=== PATIENT | female | born 1965 | race Caucasian/White ===

== ENCOUNTER 2016-08-08 01:16 | Inpatient (IN) | payer OTHER ==
--- NOTE | ~2016-08-08 | OR ---
Unit #: [id number] #: [id number] Patient: KIMBERLY SMITH [id number] [address] [address] [id number] I MR#: [id number] NAME: KIMBERLY SMITH. ROOM: [facility] Date of Procedure: 08/10/2016 Admission Date: 08/08/2016 Surgeon: Shailesh Vega M.D. : 1965 Attending Physician: Darion Cortez M.D. Primary Care Physician: Sally Schmitt M.D. OPERATIVE REPORT PRIMARY CARE PHYSICIAN Sally Schmitt M.D. PREOPERATIVE DIAGNOSES Severe iron deficiency anemia. PROCEDURES PERFORMED Upper gastrointestinal endoscopy and biopsy. POSTOPERATIVE DIAGNOSES Moderately severe diffuse pre-pyloric antral gastritis, otherwise normal examination up to third part of duodenum. RECOMMENDATIONS 1. The patient can be discharged home from gastrointestinal standpoint. 2. Start 1800 calorie CCD diet. 3. She does require a colonoscopy, however, she has refused the examination in the hospital. This can be pursued on an outpatient basis provided she is willing. SEDATION USED MAC. DESCRIPTION OF PROCEDURE Following detailed explanation of the potential risks and complications of upper endoscopy, namely perforation, bleeding, and complications related to sedation, the patient was brought to GI lab and laid in the left lateral decubitus position. Lubricated tip of the Olympus video upper endoscope was passed through the bite block into the proximal esophagus under direct vision. The entire esophageal mucosa was examined and appeared normal. Z-line was nicely demarcated, there being no esophagitis or hiatus hernia. The scope was then advanced into the gastric cavity and the latter was insufflated. Mucosa of the fundus, body, and antrum was examined and the patient was noted to have moderately severe diffuse prepyloric antral gastritis. Pylorus was intubated with visualization of the normal duodenal bulb and second and third part of the duodenum. Upon withdrawal and retroflexion, incisura, cardia, and greater curve were examined and a biopsy was obtained from the antrum for CLOtest. The scope was then withdrawn into the distal esophagus. Entire esophageal mucosa was examined all the way up to pharynx. No additional findings were noted. The patient tolerated the procedure without any postprocedure complications. Unit #: [id number] #: [id number] Patient: KIMBERLY SMITH Dictated by... Mercedes Gibbs/ciara TD: 08/12/2016 04:58 JOB #: [id number] OPERATIVE REPORT Page 1 of 1 X Shailesh Vega MD X PROCEDURE OPERATIVE NOTE
--- NOTE | ~2016-08-08 | CT4 ---
[facility] A Service of [facility] RADIOLOGY TEXT RESULTS PATIENT: KIMBERLY SMITH [facility] [id number] : [birth year] UNIT #: [id number] AGE: [address]: Christoph Jonas MD SEX: F ORDER DR: [id number] [facility] [address] [facility]. [place], [place] [address] [id number] E MR#: [id number] Acc #: [id number] NAME: KIMBERLY SMITH : 1965 SEX: F STUDY DATE/TIME: 08/08/2016 3:37 UNIT: [facility] ROOM: STUDY DESCRIPTION: CT Abd and Pelv Wo Cont Attending Physician: Aracelis Perez M.D. Ordering Physician: Aracelis Perez M.D. Primary Care Physician: Sally Schmitt M.D. MEDICAL IMAGING REPORT This report is preliminary unless electronic signature is present EXAM CT abdomen and pelvis, noncontrast, 08/08/2016 HISTORY 51-year-old female in the ED complaining of 4-day history of nausea, vomiting and generalized abdomen pain. Past history of renal cell carcinoma and ovarian cancer. TECHNIQUE CT examination of the abdomen and pelvis was performed without oral or IV contrast as requested. This CT exam was performed with one or more of the following radiation dose reduction techniques: automatic exposure control, adjustment of mA and/or kV according to patient size, and iterative reconstruction. FINDINGS ABDOMEN FINDINGS: The exam shows evidence of significant chronic liver disease with hepatomegaly, lobulated hepatic contour and left lobe hypertrophy. Cirrhosis is suspected. The spleen is mildly enlarged, measuring about 13 cm. Mild diffuse hepatic steatosis. No liver mass is seen. There is no ascites. Cholecystectomy. Pancreas is normal. Postop changes left nephrectomy. No evidence of local tumor recurrence. Solitary right kidney appears normal. Small bowel and colon are normal in caliber and appearance, as imaged. The appendix is normal. Normal-caliber abdominal aorta. PELVIS FINDINGS: Hysterectomy. Bladder and rectum are negative. No mass or adenopathy within the pelvis, or elsewhere within the abdomen or retroperitoneum. [facility] A Service of [facility] RADIOLOGY TEXT RESULTS PATIENT: KIMBERLY SMITH LOCATION: [facility] [id number] : [birth year] UNIT #: [id number] AGE: [address]: Christoph Jonas MD SEX: F ORDER DR: IMPRESSION 1. No acute abnormality within the abdomen or pelvis. 2. Likely hepatic cirrhosis and mild splenomegaly as noted above. Mild diffuse hepatic steatosis. 3. Cholecystectomy. 4. Previous left nephrectomy. History of renal cancer. No evidence of recurrent or metastatic malignancy within the abdomen or pelvis. Solitary right kidney shows no abnormality. 5. Hysterectomy. Dictated by... Hunter Brice M.D. THIS IS AN ELECTRONICALLY VERIFIED REPORT Hunter Brice M.D. at 08/08/2016 5:52 AM MARGARET/martin TD: 08/08/2016 04:39 JOB #: [id number] MEDICAL IMAGING REPORT Page 1 of 1 COPY
--- NOTE | ~2016-08-08 | EKG ---
PATIENT: KIMBERLY SMITH UNIT #: [id number] Ventricular Rate: 96 BPM Atrial Rate: 96 BPM P-R Interval: 164 ms QRS Duration: 76 ms Q-T Interval: 354 ms QTC Calculation(Bezet): 447 ms P [place]: 49 degrees Calculated R [place]: 48 degrees Calculated T [place]: 25 degrees Diagnosis Line: Normal sinus rhythm Diagnosis Line: Poor R wave progression questionable lead position Diagnosis Line: or body habitus Diagnosis Line: Nonspecific ST and T wave abnormality Diagnosis Line: Abnormal ECG Diagnosis Line: When compared with ECG of 30-DEC-2015 14:51, Diagnosis Line: Questionable change in initial forces of Anterior Diagnosis Line: leads Diagnosis Line: Non-specific change in ST segment in Lateral leads Diagnosis Line: Confirmed by JOS HENDRICKS MD ([id number]) on 08/09/2016 Diagnosis Line: 6:26:17 PM INTERPRETING MD: ELADIO SYLVESTER
--- NOTE | ~2016-08-08 | CO ---
Unit #: [id number] #: [id number] Patient: KIMBERLY SMITH [id number] [address] [address] [id number] I MR#: [id number] NAME: KIMBERLY SMITH. ROOM: 316 Age: 51 Sex: F Admission Date: 08/08/2016 : 1965 Attending Physician: Darion Cortez M.D. Primary Care Physician: Sally Schmitt M.D. Consultation Date: 08/08/2016 CONSULTATION REPORT REASON FOR CONSULTATION Pneumonia, lung nodule. 51-year-old female with past medical history significant for COPD, TIA, history of renal cell, ovarian carcinoma, diabetes, gastroesophageal reflux disease, obstructive sleep apnea, presents with a complaint of cough, shortness of breath and generalized weakness, found to have low hemoglobin. CT chest showed lung nodule and possible pulmonary congestion and pneumonia. I am seeing patient at bedside, currently getting blood transfusion. Denies any nausea, vomiting, diarrhea. PAST MEDICAL HISTORY As described above. SURGICAL HISTORY 1. Cholecystectomy. 2. Tubal ligation. 3. Hysterectomy. 4. Fatty cyst removal. 5. Carpal tunnel. 6. Left sided nephrectomy. 7. Hernia repair. 8. Cataract surgery. HOME MEDICATION 1. Cardizem. 2. Lasix. 3. Estrace. 4. Pravachol. 5. Lamotrigine. 6. Humalog. 7. Lantus. 8. Seroquel. 9. Zestril. 10. Protonix. 11. Clonazepam. 12. Cymbalta. 13. Henderson. 14. Metoprolol. 15. Nitrostat. ALLERGIES Unit #: [id number] #: [id number] Patient: KIMBERLY SMITH Zoloft, codeine, Bactrim, fenofibrate. PHYSICAL EXAMINATION VITAL SIGNS: Temperature 98, pulse 87, respirations 12, blood pressure 148/57. NEUROLOGICAL: Awake, alert, oriented. No neuro deficit. HEENT: PERRLA. NECK: Supple. No JVD. CHEST: Bilateral air entry, bilateral mild rhonchi. GI: Nontender, soft. Bowel sounds positive. EXTREMITIES: No edema. SKIN: No rashes, no ulcers. LYMPHATIC: No lymphadenopathy. DIAGNOSTIC STUDIES Labs and imaging have been reviewed. ASSESSMENT AND PLAN 1. Acute respiratory failure. 2. Community-acquired pneumonia. 3. Lung nodule. 4. Anemia. 5. Likely obstructive sleep apnea. Plan is to continue oxygen, continue bronchodilator, IV steroids, IV antibiotic, bronchodilator, GI and DVT prophylaxis, BiPAP support, GI evaluation. Please see orders for detailed plan. Thank you very much for this consultation. Dictated by... Mercedes Arthur/seb TD: 08/09/2016 10:16 JOB #: [id number] CONSULTATION REPORT Page 1 of 1 X Nikki Rodriguez MD X CONSULTATION REPORT
--- NOTE | ~2016-08-08 | CT57 ---
[facility] A Service of [facility] RADIOLOGY TEXT RESULTS PATIENT: KIMBERLY SMITH [facility] [address]18 : [birth year] UNIT #: [id number] AGE: [address]: Christoph Jonas MD SEX: F ORDER DR: [id number] [facility] [address] [place], [place] [address] [id number] E MR#: [id number] Acc #: [id number] NAME: KIMBERLY SMITH : 1965 SEX: F STUDY DATE/TIME: 08/08/2016 3:37 UNIT: [facility] ROOM: STUDY DESCRIPTION: CT Chest Wo Cont Attending Physician: Aracelis Perez M.D. Ordering Physician: Aracelis Perez M.D. Primary Care Physician: Sally Schmitt M.D. MEDICAL IMAGING REPORT This report is preliminary unless electronic signature is present EXAM CT chest, noncontrast, 08/08/2016 HISTORY 51-year-old female in the ED complaining of 4-day history of shortness of air, mid chest pain and cough. She also notes generalized abdomen pain, nausea and vomiting. Past history includes ovarian cancer and renal cancer. TECHNIQUE CT examination of the chest was performed without IV contrast. This CT exam was performed with one or more of the following radiation dose reduction techniques: automatic exposure control, adjustment of mA and/or kV according to patient size, and iterative reconstruction. FINDINGS Mildly increased reticular markings throughout both lungs as well as diffuse, slightly patchy ground-glass pulmonary opacity. The findings are nonspecific but suggest mild pulmonary edema which may be cardiogenic or noncardiogenic. There was no airspace consolidation. Tiny amounts of fluid are present within the pulmonary fissures, but there is no free pleural effusion. Heart size is normal. No significant pericardial effusion. Normal-caliber thoracic aorta. There is a solitary, well-defined, round pulmonary nodule in the right lung apex anteriorly measuring up to 1.5 cm. This is not visible on 2 prior chest x-rays obtained in 2015. Malignant pulmonary nodule is not excluded. Given the prior history of malignancy, followup PET/CT scan is recommended for further evaluation. Abdomen and pelvis CT to follow. IMPRESSION STS. [facility] A Service of [facility] & [facility] RADIOLOGY TEXT RESULTS PATIENT: KIMBERLY SMITH LOCATION: [facility] [address]-64 : [birth year] UNIT #: [id number] AGE: [address]: Christoph Jonas MD SEX: F ORDER DR: 1. Lung finding suggesting potential mild diffuse interstitial and ground-glass pulmonary edema or diffuse infiltrate, correlate clinically. There is no free pleural effusion. Heart size normal. 2. Large solitary pulmonary nodule in the right lung apex measuring up to 1.5 cm. Patient has reported prior history of renal carcinoma as well as ovarian cancer. Primary or metastatic malignancy is not excluded. Consider followup whole-body PET/CT scan for further characterization. Dictated by... Hunter Brice M.D. THIS IS AN ELECTRONICALLY VERIFIED REPORT Hunter Brice M.D. at 08/08/2016 5:52 AM Bruna TD: 08/08/2016 04:35 JOB #: [id number] MEDICAL IMAGING REPORT Page 1 of 1 COPY
--- NOTE | ~2016-08-08 | BMI ---
[facility] Nutrition Therapy DATE: 08/08/16 Patient: KIMBERLY SMITH Physician: OANH Address: [address] [place] [address] ROAD Room/Bed: [address] [place] [address], Zip: [place] [address] Admit Date: 08/08/16 Date of : [birth year] Height: 5 2 Weight: 220 99.8 HIGH BMI NOTE: DX: 51 Y.O. FEMALE ADMITTED FOR PNA. ANTHROPOMETRICS: 5'2", WT: 220# (100 KG), BMI 40 DIET: CONSISTENT CARB DIET INTERVENTION: 1. CONSISTENT CARB DIET RECOMMENDATIONS: 1. ONCE MEDICALLY FEASIBLE, ADD HEALTHY HEART DIET TO CURRENT CONSISTENT CARBOHYDRATE DIET IN ORDER TO PROMOTE GRADUAL WEIGHT LOSS TOWARDS A HEALTHY BMI (19.0-25.0) OR +/-10% IBW. RD WILL F/U PER PROTOCOL. Respectfully, BINU ESCOBAR, BUSINESS SUPPORT COORDINATOR JOSH DEL ROSARIO MS, RD, LD [facility] and Nutrition[facility] Services [facility] cc: client file
--- NOTE | ~2016-08-08 | CR72 ---
[facility] A Service of [facility] RADIOLOGY TEXT RESULTS PATIENT: KIMBERLY SMITH LOCATION: [facility] : [birth year] UNIT #: [id number] AGE: [address]: Christoph Jonas MD SEX: F ORDER DR: [id number] [facility] [address] [facility]. [place], [place] [address] [id number] E MR#: [id number] Acc #: [id number] NAME: KIMBERLY SMITH : 1965 SEX: F STUDY DATE/TIME: 08/08/2016 4:06 UNIT: [facility] ROOM: STUDY DESCRIPTION: CR Chest Single View Portable Attending Physician: Aracelis Perez M.D. Ordering Physician: Aracelis Preez M.D. Primary Care Physician: Sally Schmitt M.D. MEDICAL IMAGING REPORT This report is preliminary unless electronic signature is present EXAM Chest x-ray, 08/08/2016 HISTORY 51-year-old female in the ED with 3-day history of shortness of air and weakness. Severe anemia. She is reportedly being considered for blood transfusion. She has a history of renal and ovarian cancer. TECHNIQUE AP portable chest x-ray. FINDINGS The exam suggests mild diffuse interstitial edema, best seen on the chest x-ray also obtained earlier today. There was no airspace consolidation or visible pleural effusion. Heart size normal. Pulmonary nodule in the right upper lobe, also best seen on the earlier CT study, new since the prior exam of 10/04/2014. Metastatic disease is a consideration given the history of prior malignancy. See chest CT reported separately. IMPRESSION 1. Lung findings suggesting mild interstitial edema. 2. Right upper lobe pulmonary nodule. Dictated by... Hunter Brice M.D. THIS IS AN ELECTRONICALLY VERIFIED REPORT Hunter Brice M.D. at 08/08/2016 5:52 AM [facility] A Service [facility] RADIOLOGY TEXT RESULTS PATIENT: KIMBERLY SMITH LOCATION: [facility] : [birth year] UNIT #: [id number] AGE: [address]: Christoph Jonas MD SEX: F ORDER DR: MARGARET/martin TD: 08/08/2016 04:47 JOB #: [id number] MEDICAL IMAGING REPORT Page 1 of 1 COPY
--- NOTE | ~2016-08-08 | DS ---
Unit #: [id number] #: [id number] Patient: KIMBERLY SMITH [id number] [address] [place], [place] [address] [id number] I MR#: [id number] NAME: KIMBERLY SMITH. ROOM: 316 Age: 51 Sex: F Admission Date: 08/08/2016 : 1965 Discharge Date: 08/11/2016 Attending Physician: Darion Cortez M.D. Primary Care Physician: Sally Schmitt M.D. DISCHARGE SUMMARY REASON FOR ADMISSION Decreased hemoglobin; community-acquired pneumonia. HISTORY OF PRESENT ILLNESS/HOSPITAL COURSE Patient is a very pleasant 51-year-old obese female who, over the past 7 days prior to admission, stated that she had increased level of dyspnea on exertion. She apparently saw her primary care physician, was told her blood counts were low and subsequently presented to the hospital for further evaluation. Hemoglobin was noted to be 6.5 on day of admission. Consultation was placed to Dr. Vega of gastroenterology service. Patient was appropriately transfused 2 units of packed red blood cells this hospital stay. Recommendation was made from Dr. Vega for both upper GI endoscopy, as well as colonoscopy. However, the patient refused colonoscopy, stated she would be unable to tolerate prep; therefore, upper GI endoscopy was performed showing gastritis findings. PPI therapy was recommended. No overt bleeding was noted. After the patient had been transfused, her hemoglobin did increase. At time of discharge it is currently 8.3. She does have a decreased MCV at 67. She did receive IV Venofer while she was here, and at time of discharge she will be prescribed p.o. ferrous sulfate. Recommendation has been made for outpatient colonoscopy to be performed by Dr. Vega for evaluation of aforementioned anemia. If lower endoscopy is negative, consideration should be given for hematology referral for possible bone marrow biopsy and/or further evaluation into etiology of decreased hemoglobin. Also at time of admission initial chest x-ray raised the possibility of findings consistent with community-acquired pneumonia. This prompted CT chest to be performed without contrast on 08/08/2016. Findings showed mild diffuse interstitial and ground glass pulmonary edema/diffuse infiltrate; therefore, consultation was placed to Dr. Rodriguez. Patient was placed on IV antibiotics while here. Also noted, there was a large solitary pulmonary nodule in the right lung apex measuring 1.5 cm. Patient had reported a prior history of renal cell carcinoma, as well as ovarian carcinoma. Consideration for primary or metastatic malignancy was not excluded. Followup as outpatient for PET scan and/or further characterization was recommended. Unit #: [id number] #: [id number] Patient: KIMBERLY SMITH Patient also underwent a CT abdomen and pelvis without contrast in consideration for aforementioned cancer, as well as metastatic consideration and/or anemia. There was no acute abnormality noted within the CT abdomen and pelvis. On further questioning, the patient stated that she was not entirely sure if she had true ovarian cancer, but she did state that she does have a prior history of renal cell carcinoma and is followed by urology as an outpatient. Blood cultures were ascertained this hospital admission and were negative. Urine culture was also ascertained, and that, too, was negative. At this point in time patient is clinically stable for discharge. It should be noted the patient's hemoglobin A1C this hospital admission was 8.3%, and in consideration, the patient's overall prognosis in regard to her diabetes is guarded secondary to poor insight into disease process. FOLLOWUP At time of discharge patient will follow up with PCP in 7-10 days for repeat CBC, as well as diabetic management. Patient will also follow up with Dr. Rodriguez of pulmonary service in regard to repeat CT chest imaging, as well as workup for solitary nodule as an outpatient. Patient will also follow up with Dr. Vega of gastroenterology service for lower colonoscopy in consideration of workup of anemia. Consideration should be given for hematology referral as an outpatient in consideration of both anemia, as well as solitary nodule. FINAL DISCHARGE DIAGNOSES 1. Acute respiratory failure. 2. Community-acquired pneumonia. 3. Solitary nodule, 1.5 cm. 4. Anemia. 5. Iron deficiency. 6. Diabetes with insulin dependence. 7. Anxiety/depression. 8. Morbid obesity. 9. Hypertension. 10. Hyperlipidemia. 11. Gastroesophageal reflux disease. 12. Gastritis. 13. Prior history of renal cell carcinoma. 14. Questionable prior history of ovarian carcinoma. 15. Chronic fatigue syndrome. 16. Prior transient ischemic attack history. 17. Diabetic neuropathy. 18. Gout. FINAL DISCHARGE MEDICATIONS 1. Ventolin 2 puffs q.4 p.r.n. 2. Prednisone 40 mg p.o. daily x5 days. 3. Lamictal 25 mg p.o. b.i.d. 4. Cymbalta 120 mg p.o. daily. 5. Zofran 4 mg p.o. q.8 p.r.n. 6. Seroquel 50 mg p.o. q.h.s. (note new dosage). 7. Cardizem CD 240 mg p.o. q.a.m. 8. Toprol XL 50 mg p.o. q.p.m./q.h.s. 9. Omnicef 300 mg p.o. b.i.d. x4 days. Unit #: [id number] #: [id number] Patient: KIMBERLY SMITH 10. Tradjenta 5 mg p.o. q.a.m. 11. Estrace 1 mg p.o. daily. 12. Pravastatin 40 mg p.o. q.h.s. 13. Lantus 40 units subcu b.i.d. 14. Humalog 5 units t.i.d. with meals. 15. Protonix 40 mg p.o. q.a.m. 16. Glucotrol 5 mg p.o. b.i.d. with meals. 17. Sublingual nitroglycerin as directed. 18. Ferrous sulfate 325 mg p.o. daily. NOTE: Please note, per initial home med/rec, patient was taking both hydrocodone, as well as Klonopin; however, urine tox screen initially performed here was negative. Therefore, these medications will not be continued at time of discharge. DISCHARGE CONDITION Stable. DISCHARGE DISPOSITION Home with appropriate outpatient followup as outlined above. Dictated by... Mercedes Aldridge/nirav TD: 08/13/2016 12:53 JOB #: [id number] DISCHARGE SUMMARY Page 1 of 1 X Darion Cortez MD X DISCHARGE SUMMARY
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
[~2016-08-08 01:16] MED LIST: ALBUTEROL17 GM INH; AMITRIPTYLINE100 MG PO; ASPIRIN81 M1 PO; CLONAZEPAM0.5 MG PO; DAKIN'S MODIF1000 ML EXT; DILTIAZEM 24HR240 MG PO; DULOXETINE HCL60 M1 PO; ESTRACE1 MG PO; FISH OIL 1,0001 CA2 PO; FORTAMET1000 MG/B1 PO; FUROSEMIDE40 MG PO; HEARTBURN RELIE75 MG PO; HUMALOG KW200 UNIT/1; HUMALOG100 U/M1; HYDROCODONE/APA1 T16 PO; K-LOR HOSPITAL20 MEQ PO; KEFLEX500 MG PO; LANTUS SOLOSTAR3 ML SUBQ; LISINOPRIL PO; LISINOPRIL-HCTZ1 T17 PO; LISINOPRIL20 MG PO; MELATONIN5 M1 PO; METFORMIN PO; METOPROLOL SUCC50 MG PO; MICRONASE5 M2 PO; MULTI-DAY VITAM1 TAB PO; NITROSTAT0.4 MG SL; NOVOLOG100 U/ML; NOVOLOG100 U/ML SUBQ; ONDANSETRON HCL4 MG PO; PANTOPRAZOLE SO40 MG PO; PERCOCET 10/3251 TAB; PERCOCET5/325 PO; PHENERGAN25 MG PO; PRAVASTATIN SOD40 MG PO; RENATABS WITH I1 TAB PO; SEROQUEL PO; SEROQUEL XR150 MG; TRADJENTA5 MG PO; VITAL-D RX TABL1 TAB; ZYLOPRIM PO
[2016-08-08 02:59] LABS: BASOPHIL# 0.1 X10e3 (0-0.3); BASOPHIL% 0.5 % (0-2.5); EOSINOPHIL# 0.2 X10e3 (0-0.7); EOSINOPHIL% 1.6 % (0.0-7.0); HEMATOCRIT 24.6 % (35.0-45.0); HEMOGLOBIN 7.3 gm/dL (12.0-16.0); LYMPHOCYTE# 2.6 X10e3 (1.0-3.5); LYMPHOCYTE% 19.5 % (17.0-45.0); MEAN CELL VOLUME 63.4 FL (83-96); MEAN CORPUSCULAR HEMOGLOBIN 18.8 PG (28-34); MEAN CORPUSCULAR HGB CONC 29.6 g/dL (30-36); MEAN PLATELET VOLUME 8.8 FL (6.5-11.5); MONOCYTE# 0.8 X10e3 (0-1.0); NEUTROPHIL# 9.5 X10e3 (1.5-7.1); NEUTROPHIL% 72.4 % (40-75); PLATELET COUNT 365 X10e3 (140-420); RED BLOOD COUNT 3.88 X10e (3.90-5.30); RED CELL DISTRIBUTION WIDTH 20.3 % (11.0-15.5); WHITE BLOOD COUNT 13.1 X10e3 (4.0-10.5)
[2016-08-08 03:01] LABS: URINE SOURCE CATH
[2016-08-08 03:01] LABS: DIFF IND YES
[2016-08-08 03:04] LABS: PARTIAL THROMBOPLASTIN TIME 26.7 SECONDS (23.5-31.3); PROTHROMBIN TIME (PATIENT) 10.4 SECONDS (9.6-11.5)
[2016-08-08 03:05] LABS: URINE APPEARANCE CLEAR; URINE BILIRUBIN NEG (NEG); URINE BLOOD NEG (NEG); URINE COLOR YELLOW; URINE GLUCOSE 500 MG/DL (NEG); URINE KETONE NEG (NEG); URINE LEUKOCYTE ESTERASE TRACE (NEG); URINE NITRATE NEG (NEG); URINE PROTEIN 1+ (NEG); URINE SPECIFIC GRAVITY 1.019 (1.003-1.035)
[2016-08-08 03:08] LABS: CULTURE INDICATED? YES; URBCS1 AUWI 0-2 /[HPF] (0-2); URINE BACTERIA AUWI 1+ (NEGATIVE); URINE SQUAMOUS EPITHELIAL CELL FEW /[HPF]
[2016-08-08 03:09] LABS: ALBUMIN SERUM 3.2 g/dL (3.5-5.0); BILIRUBIN, DIRECT 0.1 mg/dL (0.0-0.2); BILIRUBIN,INDIRECT 0.6 mg/dL (0.0-0.9); BILIRUBIN,TOTAL 0.7 mg/dL (0.2-2.0); BUN/CREATININE RATIO 14.28; CALCIUM SERUM 8.9 mg/dL (8.4-10.2); CREATININE SERUM 1.4 mg/dL (0.6-1.4); GLOM FILT RATE Estimated 43.4 mL/min (>60); POTASSIUM 3.2 mmol/L (3.5-5.1); PROTEIN TOTAL SERUM 8.1 g/dL (6.0-8.3)
[2016-08-08 03:15] LABS: AMPHETAMINE NEG (NEG); BARBITURATES NEG (NEG); BENZODIAZEPINES NEG (NEG); COCAINE NEG (NEG); MARIJUANA NEG (NEG); OPIATES NEG (NEG); TRICYCLIC ANTIDEPRESSANTS POS (NEG); U METHADONE NEG (NEG)
[2016-08-08 04:04] LABS: NUCLEATED RED BLOOD CELL 1 /100 ([, 0]); PLATELET ESTIMATE NORMAL (NORMAL)
[2016-08-08 04:05] LABS: OVALOCYTES PRESENT; POIKILOCYTOSIS MOD; POLYCHROMASIA SL
[2016-08-08 04:16] LABS: POC - CKMB 2.1 ng/mL (0.0-7.9); POC - TROPONIN <0.05 ng/mL (<=0.05)
[2016-08-08 04:28] LABS: POC - CKMB 1.7 ng/mL (0.0-7.9); POC - TROPONIN <0.05 ng/mL (<=0.05)
[2016-08-08] MEDS ORDERED: GLUCOTROL PO (04:45)
[2016-08-08] MEDS ORDERED: BRIMONIDINE TART5 ML OU (04:46)
[2016-08-08] MEDS ORDERED: LAMICTAL25 MG PO (04:46)
[2016-08-08] MEDS ORDERED: ATARAX PO (04:47)
[2016-08-08 08:33] LABS: BASOPHIL% 0.3 % (0-2.5); EOSINOPHIL# 0.2 X10e3 (0-0.7); EOSINOPHIL% 1.4 % (0.0-7.0); HEMATOCRIT 22.4 % (35.0-45.0); LYMPHOCYTE# 2.6 X10e3 (1.0-3.5); LYMPHOCYTE% 20.4 % (17.0-45.0); MEAN CELL VOLUME 63.7 FL (83-96); MEAN CORPUSCULAR HEMOGLOBIN 18.5 PG (28-34); MEAN PLATELET VOLUME 8.3 FL (6.5-11.5); MONOCYTE# 0.8 X10e3 (0-1.0); MONOCYTE% 6.6 % (3.0-12.0); NEUTROPHIL# 9.1 X10e3 (1.5-7.1); NEUTROPHIL% 71.3 % (40-75); PLATELET COUNT 327 X10e3 (140-420); RED BLOOD COUNT 3.51 X10e (3.90-5.30); RED CELL DISTRIBUTION WIDTH 20.2 % (11.0-15.5); WHITE BLOOD COUNT 12.8 X10e3 (4.0-10.5)
[2016-08-08 08:39] LABS: DIFF IND NO; HEMOGLOBIN 6.5 gm/dL (12.0-16.0)
[2016-08-08 22:10] LABS: ARTERIAL BLD GAS O2 SATURATION 99.5 % (90.0-100.0); ARTERIAL BLOOD GAS ALLEN TEST NORMAL; ARTERIAL BLOOD GAS ART SITE LEFT RADIAL; ARTERIAL BLOOD GAS CARBOXY HB 1.1 %sat (0.0-9.0); ARTERIAL BLOOD GAS DELIVERY BIPAP 16/4; ARTERIAL BLOOD GAS HCO3 23.7 mmol/L; ARTERIAL BLOOD GAS MET HB 1.5 %sat (0.0-2.0); ARTERIAL BLOOD GAS PCO2 38.5 mmHg (35.0-45.0); ARTERIAL BLOOD GAS pH 7.398 (7.350-7.450); ARTERIAL DRAW? YES
[2016-08-09 00:41] LABS: AMPHETAMINE NEG (NEG); BARBITURATES NEG (NEG); BENZODIAZEPINES NEG (NEG); COCAINE NEG (NEG); MARIJUANA NEG (NEG); OPIATES NEG (NEG); TRICYCLIC ANTIDEPRESSANTS NEG (NEG); U METHADONE NEG (NEG)
[2016-08-09 05:46] LABS: BASOPHIL# 0.1 X10e3 (0-0.3); HEMATOCRIT 28.9 % (35.0-45.0); LYMPHOCYTE# 0.8 X10e3 (1.0-3.5); LYMPHOCYTE% 8.4 % (17.0-45.0); MEAN CORPUSCULAR HEMOGLOBIN 20.7 PG (28-34); MEAN CORPUSCULAR HGB CONC 30.3 g/dL (30-36); MEAN PLATELET VOLUME 8.9 FL (6.5-11.5); MONOCYTE% 0.5 % (3.0-12.0); NEUTROPHIL# 8.5 X10e3 (1.5-7.1); NEUTROPHIL% 90.1 % (40-75); PLATELET COUNT 316 X10e3 (140-420); RED BLOOD COUNT 4.24 X10e (3.90-5.30); RED CELL DISTRIBUTION WIDTH 24.6 % (11.0-15.5); WHITE BLOOD COUNT 9.5 X10e3 (4.0-10.5)
[2016-08-09 05:51] LABS: HEMOGLOBIN 8.8 gm/dL (12.0-16.0)
[2016-08-09 05:52] LABS: DIFF IND YES; MEAN CELL VOLUME 68.2 FL (83-96)
[2016-08-09 06:38] LABS: ALBUMIN SERUM 3.3 g/dL (3.5-5.0); BILIRUBIN,TOTAL 0.5 mg/dL (0.2-2.0); BUN/CREATININE RATIO 16.42; CALCIUM SERUM 8.7 mg/dL (8.4-10.2); CREATININE SERUM 1.4 mg/dL (0.6-1.4); GLOM FILT RATE Estimated 43.4 mL/min (>60); POTASSIUM 4.6 mmol/L (3.5-5.1); PROTEIN TOTAL SERUM 8.2 g/dL (6.0-8.3)
[2016-08-09 06:40] LABS: SPHEROCYTE SL
[2016-08-09 06:41] LABS: ANISOCYTOSIS SL; PLATELET ESTIMATE NORMAL (NORMAL); POLYCHROMASIA SL
[2016-08-09 06:51] LABS: FOLATE (FOLIC ACID) 9.9 ng/mL (>5.8)
[2016-08-10 06:15] LABS: HEMATOCRIT 28.6 % (35.0-45.0); HEMOGLOBIN 8.5 gm/dL (12.0-16.0); MEAN CELL VOLUME 67.8 FL (83-96); MEAN CORPUSCULAR HEMOGLOBIN 20.2 PG (28-34); MEAN CORPUSCULAR HGB CONC 29.7 g/dL (30-36); MEAN PLATELET VOLUME 8.8 FL (6.5-11.5); RED BLOOD COUNT 4.22 X10e (3.90-5.30); RED CELL DISTRIBUTION WIDTH 23.9 % (11.0-15.5); WHITE BLOOD COUNT 11.6 X10e3 (4.0-10.5)
[2016-08-10 06:58] LABS: BUN/CREATININE RATIO 21.42; CALCIUM SERUM 8.5 mg/dL (8.4-10.2); CREATININE SERUM 1.4 mg/dL (0.6-1.4); GLOM FILT RATE Estimated 43.4 mL/min (>60); POTASSIUM 5.2 mmol/L (3.5-5.1)
[2016-08-11 06:32] LABS: HEMATOCRIT 27.4 % (35.0-45.0); HEMOGLOBIN 8.3 gm/dL (12.0-16.0); MEAN CELL VOLUME 67.5 FL (83-96); MEAN CORPUSCULAR HEMOGLOBIN 20.5 PG (28-34); MEAN CORPUSCULAR HGB CONC 30.3 g/dL (30-36); MEAN PLATELET VOLUME 8.9 FL (6.5-11.5); RED BLOOD COUNT 4.06 X10e (3.90-5.30); RED CELL DISTRIBUTION WIDTH 24.8 % (11.0-15.5); WHITE BLOOD COUNT 9.8 X10e3 (4.0-10.5)
[2016-08-11 07:00] LABS: BUN/CREATININE RATIO 26.66; CALCIUM SERUM 8.7 mg/dL (8.4-10.2); CREATININE SERUM 1.2 mg/dL (0.6-1.4); GLOM FILT RATE Estimated 52.3 mL/min (>60); POTASSIUM 4.3 mmol/L (3.5-5.1)
[2016-08-11] MEDS ORDERED: QUETIAPINE FUMA25 MG PO (13:01)
[2016-08-11] MEDS ORDERED: TOPROL XL 50 MG50 MG PO (13:03)
[2016-08-11] MEDS ORDERED: CEFDINIR300 M1 PO (13:03)
[2016-08-11] MEDS ORDERED: HUMALOG KW100 UNIT/1 SUBQ (13:06)
[2016-08-11] MEDS ORDERED: LANTUS SOL100 UNIT/1 SUBQ (13:06)
[2016-08-11] MEDS ORDERED: PREDNISONE PO (13:08)
[2016-08-11] MEDS ORDERED: IRON256 MG PO (13:09)
[2016-08-11] MEDS ORDERED: SYMBICORT INH (13:09)
== END 2016-08-11 13:39 | disposition home or self-care (01) | DRG 189 ==
LOC: CED 01:16 → C3A PCU 04:40 → CEDOF 04:40 → CED 04:45 → CEDOF 04:45 → C3A PCU 06:25 → CEDOF 06:25 → C3A PCU 07:35
PROVIDERS: Emergency Medicine; Family Medicine; Internal Medicine; Internal Medicine Gastroenterology
PROC: 30233N1 Transfusion of Nonautologous Red Blood Cells into Peripheral Vein, Percutaneous Approach (ICD-10-PCS; 2016-08-08)
PROC: 3E0234Z Introduction of Serum, Toxoid and Vaccine into Muscle, Percutaneous Approach (ICD-10-PCS; 2016-08-09)
PROC: 0DB68ZX Excision of Stomach, Via Natural or Artificial Opening Endoscopic, Diagnostic (ICD-10-PCS; principal; 2016-08-10 20:14)
DX: J96.01 Acute respiratory failure with hypoxia (principal); J18.9 Pneumonia, unspecified organism; E11.40 Type 2 diabetes mellitus with diabetic neuropathy, unspecified; D62 Acute posthemorrhagic anemia; J44.0 Chronic obstructive pulmonary disease with (acute) lower respiratory infection; Z68.41 Body mass index [BMI] 40.0-44.9, adult; J44.1 Chronic obstructive pulmonary disease with (acute) exacerbation; I25.10 Atherosclerotic heart disease of native coronary artery without angina pectoris; R91.1 Solitary pulmonary nodule; Z85.528 Personal history of other malignant neoplasm of kidney; Z85.43 Personal history of malignant neoplasm of ovary; F41.1 Generalized anxiety disorder; F32.9 Major depressive disorder, single episode, unspecified; G89.4 Chronic pain syndrome; Z86.73 Personal history of transient ischemic attack (TIA), and cerebral infarction without residual deficits; F17.210 Nicotine dependence, cigarettes, uncomplicated; Z90.49 Acquired absence of other specified parts of digestive tract; Z98.51 Tubal ligation status; Z90.710 Acquired absence of both cervix and uterus; Z98.49 Cataract extraction status, unspecified eye; G47.33 Obstructive sleep apnea (adult) (pediatric); D50.9 Iron deficiency anemia, unspecified; L28.0 Lichen simplex chronicus; J20.9 Acute bronchitis, unspecified; Z23 Encounter for immunization; E66.01 Morbid (severe) obesity due to excess calories; Z79.4 Long term (current) use of insulin; M10.9 Gout, unspecified
CPT/HCPCS: 36415; 36600; 71010; 71250; 74176; 80048; 80053; 80076; 80307; 81003; 82308; 82553; 82607; 82728; 82746; 82803; 82947; 83036; 83540; 83550; 83605; 83690; 83880; 84443; 84484; 85025; 85027; 85610; 85730; 86850; 86900; 86901; 86923; 87040; 87077; 87086; 90732; 93005; 94640; 94660; 94760; 96361; 96365; 96367; 99285; C9113; G0009; G0480; J0456; J0696; J1815; J1940; J2250; J2405; J2916; J2920; J2930; P9016